=== PATIENT | male | born 1975 | race Caucasian/White ===

== ENCOUNTER 2020-05-08 20:52 | Emergency (ER) | payer OTHER, BC, SELFPAY ==
[2020-05-08 20:54] VITALS: BP 141/73; PULSE 85; RESP 16; TEMP 36.2; O2SAT 97; BMI 27.5
--- NOTE | 2020-05-08 21:05 | ED.VIS.GEN ---
History of Present Illness Chief Complaint: Lower Extremity Injury Detail of Chief Complaint: Left knee pain Onset: Days Context: Sudden Onset Timing: Continuous Quality: Pain Location: Medial side of the left knee Current Severity: Mild Maximum Severity: Severe Worsened by: Weightbearing, movement Relieved by: Nothing Associated Symptoms: Limited use Narrative: Patient is a 45-year-old male who was using a 30 pound 3 foot long stave and bolt equalizer at work on Monday. States he slipped. The stave and bolt equalizer hit him above the left knee lateral distal femur. He states his knee buckled backwards question hyperextension. He presently complains of pain medially. He denies prior injury. He denies paresthesia, anesthesia or motor weakness. He has no other complaints. Prior similar symptoms: No Recent Illness/Hospitalization: No - Past Medical History (1) No significant past medical history Status: Acute Past Medical History - Allergies and Home Meds Allergies/Adverse Reactions: Allergies No Known Allergies Allergy (Verified 05/08/20 20:54) Primary Care Physician: NOT,DEFINED [Primary Care Provider] - Prior records reviewed: No Surgical History: noncontributory Lives: Spouse/ Significant Other Smoking Status: Unknown if ever smoked Drugs: None Review of Systems General: Denies: Chills, Fever, Malaise Musculoskeletal: Reports: Swelling, Extremity Pain. Denies: Myalgias, Arthralgias, Neck pain, Back pain Skin: Denies: Rash, Abrasions, Wounds Neurological: Denies: Weakness, Parasthesia, Numbness Hematologic: Denies: Easy bruising, Easy bleeding Physical Exam Vital Signs/Narrative: Vital Signs Temp Pulse Resp BP Pulse Ox 05/08/20 20:54 97.2 F L 85 16 141/73 H 97 Inital Vital Signs reviewed: Yes General: Well nourished, Well developed, Acute Distress Head: Normocephalic, Atraumatic Eyes: Perrl, EOMI. Negative for: Pale conjunctiva Cardiovascular: Regular rate, Regular rhythm Respiratory: No distress Extremities: No edema, Tenderness - Tenderness over the MCL left knee. There is left medial joint line pain. The patella is not ballotable. There is no effusion. There is tenderness over the quadricep tendon. He is able to extend 180 degrees. Negative laxity with Skylar test and no click with modified Kallie's test., - - P PT pulse are palpable.. Negative for: Nontender Skin: Normal color, No rash, Trauma - Maguire noted superior to the left patella. Is able to extend to 180 degrees and flex to approximately 100 degrees. Neurological: Alert, Oriented x3, Cranial nerves II-XII grossly intact, Normal Strength, Normal Sensation. Negative for: Normal Gait Psychological: Normal affect Diagnostic/Tx/Re-eval Chest X-Ray - ED: Read by ED Physician - 4 view x-ray of the knee was obtained and reveals no fracture or effusion. 05/08/20 21:17 Knee 4 or More Views [RAD] Stat - Medical Decision Making She was medicated with Naprosyn since she has no contraindication and [place]. X-ray was obtained to rule out fracture etc. Suspect contusion with strain of the MCL. ED Disposition - Plan for ED Patient: Disposition: Home or Assisted Living Diagnosis: MCL sprain of left knee Instructions: ED Knee Sprain Prescriptions: Naproxen [Naprosyn] 500 mg PO BID #14 tab Prescription Printed Hydrocodone Bitart/Apap 5-325 [[place] 5MG-325MG] 1 tab PO Q6H PRN PRN 3 Days #10 tab PRN Reason: Pain Prescription Printed Referrals: NOT,DEFINED [Primary Care Provider] - Arnaldo Benton DO [STAFF PHYSICIAN] - 3-5 Days Additional Instructions: 1. Apply ice 6-8 times per day 2. Bear weight as tolerated, use crutches 3. You were assigned to follow-up with Dr. Rosas for your knee strain
[2020-05-08] MEDS: Naproxen 500 MG Tablet PO (21:11)
[2020-05-08] MEDS: HYDROcodone Bitartrate/Apap 5/325 Tablet PO (21:11)
--- NOTE | 2020-05-08 21:17 | RAD_ITS ---
STUDY: X-RAY - LEFT KNEE REASON FOR EXAM: Male, 45 years old. Injury/Pain TECHNIQUE: 4 view(s) of the knee. COMPARISON: None. FINDINGS: Normal visualized distal femur. Normal visualized proximal tibia and fibula. Normal proximal tibiofibular articulation. There is no demonstrated fracture. Normal medial femorotibial compartment. Normal lateral femorotibial compartment. Normal patellofemoral articulation. There is a soft tissue prominence in the suprapatellar region suggesting a small volume joint effusion. The soft tissue structures are unremarkable. RAD/Knee 4 or More Views IMPRESSION: Small effusion Electronically Signed: Scott Ashley MD at 21:55 EST , Service support ,
[2020-05-08 22:08] VITALS: BP 136/68; PULSE 78; RESP 16; O2SAT 100
== END 2020-05-08 22:08 | disposition home or self-care (01) ==
LOC: ED 21:45
PROVIDERS: Emergency Provider Emergency Medicine
DX: S83.92XA Sprain of unspecified site of left knee, initial encounter (principal); W31.89XA Contact with other specified machinery, initial encounter; Y93.89 Activity, other specified; Y92.89 Other specified places as the place of occurrence of the external cause; Y99.0 Civilian activity done for income or pay
CPT/HCPCS: 73564; 99284